=== PATIENT | female | born 1965 | race African-American/Black ===

== ENCOUNTER 2017-07-11 17:40 | Emergency (ER) | payer SELFPAY ==
[~2017-07-11] VITALS: Ht 157.5 cm; Wt 136.0 kg
[2017-07-11 17:51] VITALS: BP 195/78
== END 2017-07-11 18:38 | disposition home or self-care (01) ==
LOC: ER 18:15
DX: T16.2XXA Foreign body in left ear, initial encounter (principal); I10 Essential (primary) hypertension; X58.XXXA Exposure to other specified factors, initial encounter; Y93.89 Activity, other specified; Y92.89 Other specified places as the place of occurrence of the external cause; Y99.8 Other external cause status
CPT/HCPCS: 69200; 99284